=== PATIENT | male | born 1995 | race Asian ===

== ENCOUNTER 2017-01-12 20:24 | Emergency (ER) | payer OTHER ==
[2017-01-12 22:46] VITALS: BP 162/91
== END 2017-01-12 22:45 | disposition home or self-care (01) ==
LOC: ED 20:24
DX: S43.005A Unspecified dislocation of left shoulder joint, initial encounter (principal); R03.0 Elevated blood-pressure reading, without diagnosis of hypertension; Z87.19 Personal history of other diseases of the digestive system; Z98.890 Other specified postprocedural states; W03.XXXA Other fall on same level due to collision with another person, initial encounter; Y93.89 Activity, other specified; Y92.89 Other specified places as the place of occurrence of the external cause; Y99.8 Other external cause status
CPT/HCPCS: J1885; J2405; J3010; J3490; J7050; Q0092